=== PATIENT | female | born 1990 | race Two or more races ===

== ENCOUNTER → 2022-09-02 10:02 | Outpatient (BNVA) | payer OTHER, SELFPAY | PROVIDERS: Visit Provider Physician Assistant ==

== ENCOUNTER → 2022-09-25 08:46 | Outpatient (BNVA) | payer OTHER, SELFPAY | PROVIDERS: Visit Provider Physician Assistant | DX: E66.01 Morbid (severe) obesity due to excess calories (principal); Z68.41 Body mass index [BMI] 40.0-44.9, adult; Z98.84 Bariatric surgery status; Z90.3 Acquired absence of stomach [part of] | CPT/HCPCS: 99202 ==

== ENCOUNTER → 2024-02-29 09:35 | Outpatient (BNVA) | payer OTHER, SELFPAY | PROVIDERS: Visit Provider Surgery ==

== ENCOUNTER 2024-03-27 08:00 | Outpatient (AMB) | payer OTHER, SELFPAY ==
--- NOTE | 2024-03-27 08:58 | A.OFFVIS_ITS ---
VS Expanded 03/27/24 09:22 Height 5 ft 3 in Weight 263 lb BMI 46.6 Body Fat % 49.4 Body Fat Mass 129.8 Fat Free Mass 133 Visceral Fat Rating 15 Body Water % 36.3 Body Water Mass 95.4 Basal Metabolic Rate/Score 1,928 Intake Visit Reasons: TV Re-Est Revision SWL BMI 46.6 Allergies amoxicillin Allergy (Mild, Verified 03/27/24 09:01) FACE NUMBNESS iron glucose Allergy (Mild, Uncoded 03/27/24 09:01) swelling Medication List - Last Reconciled 03/27/24 by Dmitri Smith MD No Known Home Meds HPI HPI TV Re-Est Revision SWL BMI 46.6: Details: Start time: 8.44am, End time: 9.34am ?I spent 45 minutes speaking with the patient on the phone plus an additional 5 minutes reviewing and updating records for a total of 50 minutes HPI Comments Details: Previous weight loss efforts: sleeve gastrectomy (followed for a year in the practice and lost 160 lbs) Wakes up: 7am, Sleeps: 8pm Breakfast: Premier premade shake at 8am Lunch: skips Dinner: skips Snacks: 8-9 snacks (cheese, bagels, breads, pasta) Exercise: treadmill without incline Fluids: Coffee: 1 cup/day, tea: none, soda: 4 cans of diet soda, juice: none, ETOH: none PFSH Medical History (Updated 09/25/22 @ 09:27 by Radha Reynoso PA-C) Hx of adenoiditis Surgical History (Updated 02/29/24 @ 09:53 by April Guallpa CMA) Hx of adenoidectomy Hx of tonsillectomy S/P gastric sleeve procedure Family History Mother Fibromyalgia COPD (chronic obstructive pulmonary disease) Asthma Father Hypertension Diabetes Glaucoma Autistic disorder Son Autistic disorder Son No problems noted. Son No problems noted. Social History Alcohol intake: never Patient Tobacco Use Status: Never used Tobacco Telehealth Telehealth Telehealth Platform: Telephone Location of provider rendering services: practice address Location of patient: address on file Patient Identification confirmed using: Name, : Yes Telehealth method: voice only Patient verbally consented to treatment: Yes Patient verbally consented to billing insurance company: Yes Patient informed of any privacy concerns related to visit: Yes Minutes spent on Phone/Video with Pt.: 50 Assessment & Plan Assessment & Plan (1) Morbid obesity: Code(s): E66.01 - Morbid (severe) obesity due to excess calories Category: Medical Plan: 1.? Plan for lap sleeve gastrectomy revision. If diaphragmatic or ventral hernias are present at time of surgery, these will be repaired laparoscopically as well. Risks and complications include possible conversion to an open procedure, anastomotic leak, bleeding requiring transfusion, small bowel o bstruction, , DVT and pulmonary embolism, cardiac, or pulmonary complications, as terminal supervisor complications such as anastomotic ulcer, insufficient weight loss and vitamin deficiencies. I emphasized the importance of close follow-up, adherence to instructions and good communication. 2. Nutritional counseling. Start with one premade PREMIER shake (4oz of Premier mixed with 4oz almond milk) at 8am-10am, 1 Fit Crunch, or Atkins or Build protein bar (buy at [employer], [employer], [employer], or [employer]) at 11am-1pm, lunch as 2pm (6 forks of protein and 6 forks of salad or vegetables), one whole bottle premade PREMIER shake at 4pm-6pm, dinner at 7pm (6 forks of protein and 6 forks of salad/vegetables).. So you do 2 protein shakes, 1 protein bar and two meals per day. Meal to include lean meat (beef, fish, pork, turkey, chicken), or afghan yogurt, or egg whites, or beans with a salad with olive oil and fruits (berries, pears, apples, kiwi). Avoid salt, breads, potatoes, rice, pasta, desserts. 3. Each shake would be drunk slowly, like coffee in a period of 2 hours. 4. Cut each bar in 4 pieces and eat each piece in 30min ?to make each bar last 2 hours. 5. I emphasized the importance of measuring accurately the food portion and measure it when serving the food in plate 6. The meal portions include 6 full-size forks of meat and 6 full-size forks of salad. You always eat the meat portion but you can replace up to 3 forks for salad/vegetables with rice, potatoes or pasta, or a fruit ?if you like. The less you do it the better weight loss will be. 7. One full-size fork is what it can be scooped on the fork without falling aside and not what can be bit with the fork. Use regular forks like those you find in a typical restaurant. 8.? Please send me weight measurements as soon as possible and then once a week. Always include your diet and exercise plan. 9. Start treadmill daily and burn 300 calories per day, daily. Goal is to burn 2000 calories per week on the treadmill 10. The best choice would be to purchase a stationary bike, elliptical or treadmill at home that can track calories. Let me know if you do so I can give you an exercise plan. 11.?It is important of avoiding and for at least 18 months postoperatively and has been discussed at the infosession. 12. Goal is to lose at least 1.5-2lbs per week 13. Goal to lose 10% of your weight before surgery, which is about 26lbs. Ultimate weight goal: 217lbs before surgery 14. Please follow the diet plan exactly without any change. If you don't like something about the plan or you feel hungry you need to communicate with me so I can help you revise the plan. You should not change the plan yourself. 15. To be scheduled for EGD due to the history of sleeve gastrectomy and anemia. The possibility of biopsies was discussed. Patient needs to avoid use of NSAIDs and aspirin for 1 week prior to EGD. You must be on liquids only the day before your endoscopy. Risks of perforation and bleeding was discussed with the patient. This will be an outpatient procedure with IV sedation.
[2024-03-27 09:22] VITALS: BMI 46.6
== END 2024-03-27 09:35 | disposition home or self-care (01) ==
LOC: HO.HBS 08:00
PROVIDERS: Visit Provider Surgery
DX: E66.01 Morbid (severe) obesity due to excess calories (principal)
CPT/HCPCS: 99204

== ENCOUNTER 2024-04-05 09:15 | Day surgery (SDC) | payer OTHER, SELFPAY ==
--- NOTE | 2024-04-04 08:38 | HO.ANESPROP2 ---
Documented by User: Priya Barnett NP 04/04/24 08:38 HPI - Anesthesia Eval Consult details Narrative: 34yo F for Upper Endoscopy PMFSH Active Problems Active Problems: All Active Problems Anemia (Acute) Pre-op evaluation (Acute) S/P gastric sleeve procedure (Acute) Morbid obesity (Acute) Past Medical History Medical History Anemia Hx of adenoiditis Family History Family History Mother Fibromyalgia COPD (chronic obstructive pulmonary disease) Asthma Father Hypertension Diabetes Glaucoma Autistic disorder Son Autistic disorder Son No problems noted. Son No problems noted. Surgical History Surgical History Hx of adenoidectomy Hx of tonsillectomy S/P gastric sleeve procedure Social History Social History Alcohol intake: never Patient Tobacco Use Status: Never used Tobacco Use of substances other than those prescribed or required for medical reasons: No Are you DNR?: No Advance Directives: No Advance Directives Information Provided: Yes Advance Directives on File: No Recently lost weight without trying: No Nutrition Risks: No Nutritional Risk Meds Allergies Allergy/AdvReac Type Severity Reaction Status Date / Time amoxicillin Allergy Mild FACE Verified 03/27/24 09:01 NUMBNESS iron glucose Allergy Mild swelling Uncoded 03/27/24 09:01 Home Medications ?Medication ?Instructions ?Recorded ?Confirmed ?Last Taken ?Type ascorbic acid (vitamin C) 500 mg PO 04/05/24 Unknown History tablet (Vitamin C) cholecalciferol (vitamin D3) 50 50 mcg PO DAILY 04/05/24 Unknown History mcg (2,000 unit) capsule (Vitamin D3) Assessment and Plan Assessment Anesthesia Assessment: Chart Reviewed Documented by User: Tenisha Putnam MD 04/05/24 11:14 PMFSH Active Problems Active Problems: All Active Problems Anemia (Acute) Pre-op evaluation (Acute) S/P gastric sleeve procedure (Acute) Morbid obesity (Acute) BMI 47.5 H/o ADONAY Past Medical History Medical History Anemia Hx of adenoiditis Family History Family History Mother Fibromyalgia COPD (chronic obstructive pulmonary disease) Asthma Father Hypertension Diabetes Glaucoma Autistic disorder Son Autistic disorder Son No problems noted. Son No problems noted. Family history of problems with anesthesia: No Surgical History Surgical History Hx of adenoidectomy Hx of tonsillectomy S/P gastric sleeve procedure History of Problems with Anesthesia: No Social History Social History Alcohol intake: never Patient Tobacco Use Status: Never used Tobacco Use of substances other than those prescribed or required for medical reasons: No Are you DNR?: No Advance Directives: No Advance Directives Information Provided: Yes Advance Directives on File: No Recently lost weight without trying: No Nutrition Risks: No Nutritional Risk Meds Allergies Allergy/AdvReac Type Severity Reaction Status Date / Time amoxicillin Allergy Mild FACE Verified 03/27/24 09:01 NUMBNESS iron glucose Allergy Mild swelling Uncoded 03/27/24 09:01 Home Medications ?Medication ?Instructions ?Recorded ?Confirmed ?Last Taken ?Type ascorbic acid (vitamin C) 500 mg PO 04/05/24 Unknown History tablet (Vitamin C) cholecalciferol (vitamin D3) 50 50 mcg PO DAILY 04/05/24 Unknown History mcg (2,000 unit) capsule (Vitamin D3) Exam Height,Weight and Vital Signs: Height 5 ft 3 in Weight 121.733 kg Vital Signs Temp Pulse Resp BP Pulse Ox O2 Del Method 04/05/24 11:01 96.6 F L 69 16 112/63 100 Room Air Pertinent Lab Results Pertinent Lab Results: Lab Results 04/05/24 Range/Units 10:44 Urine Test NEGATIVE (NEGATIVE) Airway Mallampati Class: II TM Dist: >3cm Neck ROM: Full Loose/Missing/Broken Teeth: Yes (Missing top left back( extracted 2 days ago), missing bottom right. Denies broken or loose teeth) Heart: RRR Lungs: CTAB Assessment and Plan Assessment Anesthesia Assessment: Anesthesia Plan Discussed and Chart Reviewed Final Anesthetic Review Family History of Problems with Anesthesia: No History of Problems with Anesthesia: No NPO: Yes ASA Class: III Final Preanesthetic Review: No Changes in Pt Med Stat, Meds/Allgs Chart Reviewed, Consent Obtained/Reviewed and Anes Risks/Benef Reviewed Patient Risk: Intermediate Procedure Risk: Low Assessment/Block/Sedation in SS: Assess/Block/Sedation-SS Anesthetic Plan Anesthetic Plan: TIVA Disposition: Standard PACU
[2024-04-05 10:55] VITALS: BMI 47.5
[2024-04-05 10:59] LABS: UPreg QC Valid YES; Urine Pregnancy NEGATIVE (NEGATIVE)
[2024-04-05 11:01] VITALS: BP 112/63; PULSE 69; RESP 16; TEMP 35.9; O2SAT 100
--- NOTE | 2024-04-05 11:06 | MHC.SHP ---
Pre-Procedural Eval Section A - 24 Hr Update-Section A only Date of Service: 04/05/24 The patient is an INPATIENT: No The patient has been examined within 24 hours of the surgical procedure. The History & Physical has been completed within 30 days and I have reviewed it.: Yes Section B - Complete if H&P > 30 days Chief Complaint: Postgastric surgery syndromes Details of Present Illness: Weight gain after sleeve gastrectomy Relevant Family History (Specify if Yes): No Relevant Social History: None Present Medications: None Medical History: No relevant PMH History of Previous Operations: Relevant previous surgery/procedure and date(s) (Laparoscopic sleeve gastrectomy) Allergies: Allergies Allergy/AdvReac Type Severity Reaction Status Date / Time amoxicillin Allergy Mild FACE Verified 03/27/24 09:01 NUMBNESS iron glucose Allergy Mild swelling Uncoded 03/27/24 09:01 Review of Systems Sugical H&P ROS: Negative: Constitution, Cardiovascular, Respiratory, Neurological, Psychiatric, Hem-Onc, Allergic/Immunologic, Gastrointestinal, Genitourinary, Musculoskeletal, Integumentary, Endocrine and Eyes/Ears/Nose/Throat Exam Surgical H&P Exam: Normal: HEENT, Normal: Heart, Normal: Lungs, Normal: Extremities, Normal: Abdomen, Normal: Skin and Normal: Neurological Plan Diagnosis/Plan: Unchanged (EGD to assess the anatomy of the sleeve gastrectomy. Risks of bleeding and perforation were discussed with the patient and she is in agreement with the plan.) I have reviewed the history and physical and performed a pertinent physical examination on my patient. No changes have occurred unless specified. Time Spent With Patient Time: Total time managing care of this patient today ____ minutes.
[2024-04-05] MEDS: Lactated Ringers 1,000 ML 80 ML IVCONT (11:11)
--- NOTE | 2024-04-05 11:15 | PM.OP ---
Brief Operative Note Date of Service: 04/05/24 Pre-op diagnosis: Morbid obesity, s/p sleeve gastrectomy Post-op diagnosis: same Procedure: PROCEDURE DATE: 04/05/2024 PREOPERATIVE DIAGNOSIS: Morbid obesity, s/p sleeve gastrectomy POSTOPERATIVE DIAGNOSIS: ?Same as above. 1) esophagitis I, 2) mild proximal sleeve redundancy PROCEDURE: [id number] with biopsies Surgeon: ?Jamie Smith M.D.. Ph.D. District Manager Primary Care Sales: None ? Anesthesia: IV sedation Estimated blood loss: ?Minimal FINDINGS AND PROCEDURE: ? OPERATIVE INDICATIONS: ?The patient is a 34 year old female known to me who underwent a laparoscopic sleeve gastrectomy by Dr. Bailey. The patient had poor weight loss so far. Based on this information I recommended an upper endoscopy to evaluate the anatomy of the sleeve gastrectomy. Risks and complications of the surgery were discussed with the patient in advance particularly the possibility of perforation or bleeding that may require surgical intervention. The patient understood the risks and was in agreement with the plan. ? PROCEDURE: After informed consent was obtained by the patient, the patient was ?transferred to the Operating Room and was placed in the supine position.? After successful induction of IV sedation, a mouth block was inserted and the patient was placed in the left lateral decubitus position. An upper endoscopy was performed next, the oropharynx and esophagus appeared within the normal limits. There was no hiatal hernia. The z-line was irregular with tongues of gastric mucosa protruding into the esophagus in 25% circumference. Two biopsies were obtained from the distal esophagus 2-3 cm proximal to the GE junction and two additional biopsies from the GE junction. The sleeve was entered. There was mild redundancy in the proximal sleeve. The caliber of the sleeve was even but mildly enlarged.. There was no gastritis. There was no stricture or ulcer. Biopsies were obtained from the proximal sleeve as well as the antrum. No significant bleeding was noted from any of the biopsy sites. Retroflexion was not performed because of the previous sleeve gastrectomy. The scope was then advanced into the duodenum which appeared to be normal as well. At that point the duodenum ?and the sleeve were decompressed and the scope was withdrawn from the patient's mouth. The patient was extubated and was transferred in stable condition to the Recovery Room for further care. I was present and performed all steps of the procedure. There were no residents to assist with this case. Jamie Smith M.D., Ph.D. Surgeon: Dmitri Smith MD Anesthesia: MAC Was an District Manager Primary Care Sales used for this Procedure?: No Estimated blood loss (mL): 0 IV fluids (mL): 400 Urine output (mL): 0 (No Richter to record output) Pathology: other (1) antrum x1, 2) proximal sleeve/gastric fundus x1, 3) EGJ x2, 4) distal esophagus x2) Condition: stable Disposition: PACU
[2024-04-05 11:38] VITALS: BP 130/78; PULSE 86; RESP 16; TEMP 36.4; O2SAT 100
[2024-04-05 11:53] VITALS: BP 124/71; PULSE 72; RESP 18; TEMP 36.4; O2SAT 100
== END 2024-04-05 12:36 | disposition home or self-care (01) ==
PROVIDERS: Nurse Practitioner; PCP Student in an Organized Health Care Education/Training Program; Visit Provider Surgery
PROC: 0DJ08ZZ Inspection of Upper Intestinal Tract, Via Natural or Artificial Opening Endoscopic (ICD-10-PCS; CPT 43235; principal; 2024-04-05 11:30)
DX: K91.1 Postgastric surgery syndromes (principal); E66.01 Morbid (severe) obesity due to excess calories; Z68.42 Body mass index [BMI] 45.0-49.9, adult; Z98.84 Bariatric surgery status; K20.90 Esophagitis, unspecified without bleeding; Z90.89 Acquired absence of other organs; Z88.1 Allergy status to other antibiotic agents; Z88.8 Allergy status to other drugs, medicaments and biological substances
CPT/HCPCS: 43239; 81025; 88305; 88313; 88342; J1596; J2003; J2250; J2704

== ENCOUNTER → 2024-04-05 09:15 | Outpatient (BNV) | payer OTHER, SELFPAY | PROVIDERS: PCP Student in an Organized Health Care Education/Training Program; Visit Provider Surgery | DX: K20.90 Esophagitis, unspecified without bleeding (principal); K95.89 Other complications of other bariatric procedure | CPT/HCPCS: 43239 ==